=== PATIENT | male | born 1940 | race Caucasian/White ===

== ENCOUNTER → 2019-05-27 10:25 | Outpatient (CLI) | payer MEDICARE, OTHER, SELFPAY ==
[2019-05-27 10:21] VITALS: BMI 32.8
--- NOTE | 2019-05-27 10:27 | RAD_ITS ---
STUDY: X-RAY - LEFT KNEE REASON FOR EXAM: Anterior swelling after knee injury 12 years ago. TECHNIQUE: 4 view(s) of the knee. COMPARISON: None. FINDINGS: Normal visualized distal femur. Normal visualized proximal tibia and fibula. There are degenerative changes of the proximal tibiofibular articulation. There is moderate joint space narrowing of the medial femorotibial compartment. Normal lateral femorotibial compartment. There is mild joint space of the patellofemoral articulation. There is soft tissue swelling anterior to the patella. There is vascular calcification. RAD/Knee 4 or More Views IMPRESSION: Soft tissue swelling anterior to the patella, prepatellar bursitis and soft tissue mass are leading differential considerations. Arthrosis of the medial femorotibial and patellofemoral compartments, and proximal tibiofibular articulation. Electronically Signed: Mert Scanlon MD at 10:58 EDT Tel , Service support ,
[2019-05-27 13:03] LABS: Pathologist Comment May follow
[2019-05-27 13:31] LABS: RBC /Synovial Fluid 0.327 10^6/uL (0); Synovial Fld Mononuclear WBC % 71.4 %; Synovial Fld Polynuclear WBC % 28.6 %
[2019-05-27 14:04] LABS: AUTO B FLUID DILUENT BKGD CT WBC <0.1 RBC <0.01 (W<.1,R<.01); Source / Synovial Fluid L KNEE; Source- Body Fluid SYNOVIAL
[2019-05-27 14:05] LABS: Appearance /Synovial Fluid Cloudy (CLEAR); Color / Synovial Fluid Red (Pale Yellow)
[2019-05-27 14:40] LABS: Lymph 11 %; Monocyte /Synovial Fluid 50 %; Neutrophil 39 % (0-25)
[2019-05-28 12:49] LABS: Pathologist Review Reviewed
[2019-05-28 15:33] LABS: GLUCOSE, SYNOVIAL FLUID 42 mg/dL (.); PROTEIN, SYNOVIAL FLUID 5.1 g/dL (.)
== END ==
PROVIDERS: Family Provider Internal Medicine; PCP Internal Medicine; Referring Provider Orthopaedic Surgery; Visit Provider Orthopaedic Surgery
DX: M25.462 Effusion, left knee (principal); M70.42 Prepatellar bursitis, left knee
CPT/HCPCS: 73564; 82945; 84157; 87070; 87075; 87205; 89050; 89051; 89060

== ENCOUNTER → 2020-11-13 10:28 | Outpatient (CLI) | payer MEDICARE, OTHER, SELFPAY ==
[2020-11-06 14:24] VITALS: BMI 32.8
--- NOTE | 2020-11-13 10:30 | STEWCON_ITS ---
Reason For Study: LUCIANO Stress Results Protocol: Juan F Protocol WITH DEFINITY Maximum Predicted HR: 140 bpm Target HR: 119 bpm % Maximum Predicted HR: 84 % DurationHeart Rate Stage (mm:ss) (bpm) BP Comment BASELINE 55 150/824 CC TOTAL DEFINITY FOR TEST STAGE 1 3:00 95 158/80 STAGE 2 3:00 118 170/90SOB, NO CHEST PAIN RECOVERY 67 158/88 Stress Duration: 6:00 mm:ss Maximum Stress HR: 118 bpm Baseline Echocardiogram Findings Stress Echo Wall motion Data Resting WM Intermediate WM Stress WM Interpretation Summary Exercise stress echo. 80-year-old male with a history of hyperlipidemia and a family history. Stress protocol: Resting EKG demonstrates sinus bradycardia with a rate of 54 bpm normal intervals are noted resting blood pressure is 150/82 mmHg. The patient exercised according to the regular Juan F protocol for a total duration of 6 minutes and 40 seconds. Patient completed 40 seconds into stage III of the Juan F protocol. The patient maintained sinus rhythm throughout the recording. At rest there were no ST or T wave changes noted suggest ischemia peak exercise upsloping ST changes were noted we did not meet the criteria for ischemia. No clinical angina was noted the test was terminated due to dyspnea. The peak blood pressure was 174/96 mmHg. Blood pressure response to exercise was noted to be normal. Stress echocardiographic images. Resting and stress echocardiographic images were obtained with Definity enhancement. The resting ejection fraction was 55% with LVH noted. At peak exercise there was thickening of all cisneros and reduction of low ventricular cavity size with peaking of ejection fraction of 65%. No wall motion abnormalities were noted. Conclusion: Exercise stress echo with no EKG or echocardiographic criteria for ischemia at a moderate workload. No clinical angina noted. Good functional aerobic impairment.. Ordering Physician: Abhishek Peace Referring Physician: Abhishek Peace Performed By: Suzanne López, MISSY, RVT
== END ==
PROVIDERS: PCP Internal Medicine; Referring Provider Internal Medicine; Visit Provider Internal Medicine
DX: R06.00 Dyspnea, unspecified (principal)
CPT/HCPCS: 93017; 93350; Q9957; A4216; C8928

== ENCOUNTER 2021-04-25 09:30 | Outpatient (RCR) | payer MEDICARE, OTHER, SELFPAY ==
[2020-11-06 14:24] VITALS: BMI 32.8
--- NOTE | 2021-04-03 15:49 | HP.PTEVAL_ITS ---
Patient's Visit Information ANANYA MONTES is a 80 year old M referred to Physical Therapy by Dr. Abhishek Peace MD with a diagnosis of R hip pain. Date of Evaluation: 04/03/21 Physical Therapist: Adalberto Bradshaw, PT, ATC - Visit Plan Frequency: 1x/Week Duration: 2 Weeks Plan: Pt was issued and instructed in a HEP for R LE stretching. I will follow up in one week to assess the benefit of HEP - Subjective Pt reports he has had pain in the R glute region for 2 months. Pt notes he has limitations with walking his dog at times because the pain limits him. Pt reports the pain originates in the R glute region, but will radiate to the late ral and anterior thigh region when the pain gets bad. Pt denies groin pain at this time. 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 Pt denies tingling or numbness in R LE at this time. Pt describes his pain as feeling like he has sore muscles in R LE. Pt reports no sleep difficulty at this time. Pt reports he is able to relieve the pain if he lye's on his back for a little bit. 3/10 pain at rest, 9/10 while walking his dog in the morning. - Pain R hip Pain Intensity (Out of 10): 3 Pain Intensity Range: 9 - Objective Neuro: B LE sensation is WNL to light touch. B achilles reflex= 2/3. MMT: B LE's are 5/5 throughout. ROM: L/S and LE's are WFL. FLexibility: Pt is moderately limited with HS's and piriforis muscle in R LE - Goals Goal 1:: I with HEP in 1-2 weeks Goal Time Frame: 2 Weeks - Rehabilitation Potential Physical Therapy Diagnosis: Pt has R hip pain and is limited with ambulation secondary to piriformis syndrome Rehabilitation Potential: Good - Anticipated Interventions Patient/Client Instruction: Educate patient on: Condition, Plan of Care For the Purpose of:: To improve self management Therapeutic Exercise to Include: Flexibilty training For the Purpose of:: To decrease pain, To increase ROM Thank you for the opportunity to evaluate your patient. For Medicare and Medicare HMO plans, please review the plan of care and approve it. It will need to be FAXED BACK to us at [phone] for Medicare purposes. For Medicare only, by signing this I certify the plan of care. Please let me know if there are questions or concerns regarding this plan of care. Physician Signature: Date:
--- NOTE | 2021-08-15 13:35 | HP.PT.NRP ---
ANANYA MONTES was seen in my office for initial evaluation on 04/03/21. The following Plan of Care was established for this patient: Initial Frequency: 1x/Week Initial Duration: 2 Weeks Patient/Client Instruction: Educate patient on: Condition, Plan of Care For the Purpose of:: To improve self management Therapeutic Exercise to Include: Flexibilty training For the Purpose of:: To decrease pain, To increase ROM This patient was last seen in our office . Pertinent comments regarding their Physical therapy will appear below: Pt was treated for 3 PT visits for R hip pain through the date of 04/25/21. Pt has not returned through todays date and is discontinued at this time. At this point I will be discontinuing this patient from physical therapy. I would be happy to see this patient again in the future if found appropriate by the physician. Thank you! Adalberto Bradshaw, PT, ATC Balance/Gait/Functional tests - Balance/Special Test Scores Lower Extremity Functional Score: 34
== END 2021-04-25 19:00 | disposition home or self-care (01) ==
LOC: PT 09:30
PROVIDERS: PCP Internal Medicine; Referring Provider Internal Medicine; Visit Provider Internal Medicine
DX: M25.551 Pain in right hip (principal)
CPT/HCPCS: 97110; 97161

== ENCOUNTER → 2022-04-25 | Outpatient (CLI) | payer MEDICARE, SELFPAY ==
[2022-04-25 13:51] LABS: Anion Gap 4 (5-15); BUN 17 mg/dL (7-18); Calcium,Total 9.2 mg/dL (8.5-10.1); Chloride 107 mmol/L (98-107); Creatinine, Serum 0.85 mg/dL (0.70-1.30); EST Glomerular Filtration Rate 92 mL/min (>60); Est Glom Filt Rate - Afr Amer 111 mL/min (>60); Glucose 90 mg/dL (74-106); Potassium 4.1 mmol/L (3.5-5.1); Sodium Level 140 mmol/L (136-145)
== END | disposition home or self-care (01) ==
LOC: LAB 11:53
PROVIDERS: PCP Internal Medicine; Visit Provider Nurse Practitioner Gerontology
DX: I10 Essential (primary) hypertension (principal)
CPT/HCPCS: 36415; 80048

== ENCOUNTER 2023-11-25 08:30 | Outpatient (RCR) | payer MEDICARE, SELFPAY ==
--- NOTE | 2023-10-29 13:13 | HP.PTEVAL ---
Patient's Visit Information Visit Information Visit Information: ANANYA MONTES is a 83 year old M referred to Physical Therapy by Dr. Abhishek Peace MD with a diagnosis of LBP with R sciatica. Date of Evaluation: 10/29/23 Physical Therapist: Adalberto Bradshaw, PT, ATC Visit Plan Frequency: 2x /Week Duration: 3 Weeks Plan: Issue and instruct pt in HEP of SKTC/DKTC and core stab ex's Subjective Subjective: Pt reports he has had LBP for approximately 2 weeks. Pt reports his pain had an insidious onset in nature. Pt reports he has been using Voltaren to help ease with his pain, but the pain is severe and very limiting. Pt reports his pain is the worst when he has been walking a lot. Pt notes he has 2 dogs that he likes to take walking twice a day, but has been limited by the pain lately. Pt reports his pain will decrease some if he stops walking and sits down. Pt reports as long has he is sitting and not moving around, he has no pain. Pt denies sleep difficulty at this time. Pt reports no pain upon awakening in the morning, but the pain starts as soon as he starts walking. Pt has not had any recent diagnostic testing. Pt notes he has pain in the R glute area that extends to his R groin. Pt reports his pain is best relieved by standing upright and then bending forward reaching for his toes. Pain LBP/R hip: Pain Intensity (Out of 10): 0 Pain Intensity Range: 9 Objective Objective: Neuro: B LE sensation is WNL to light touch. B patellar reflex= 2/3 MMT: B LE's are grossly 5/5 throughout ROM: flexion and L SB are WNL. Extension is moderately limited, and R SB is minimally limited. Repeated movements: RFIS 10x2 better, FABI 10x2 increased central LBP Special tests: All neg hip tests this date. SKTC/DKTC all decreased pain Balance/Special Test Scores Oswestry Low Back Score: 17 Goals Goal 1:: I with HEP Goal Time Frame: 4-6 Weeks Rehabilitation Potential Physical Therapy Diagnosis: Pt has LBP, R LE radiculopathy, and difficulty with prolonged ambulation secondary to degenerative changes in the L/S Rehabilitation Potential: Good Anticipated Interventions Patient/Client Instruction: Educate patient on: Condition and Plan of Care For the Purpose of:: To improve self management Therapeutic Exercise to Include: Strength training, Postural training, Flexibilty training and Dynamic Lumbar Stabilization For the Purpose of:: To decrease pain, To increase ROM and To improve muscle performance and motor function Thermo therapy (hot pack): Yes For the Purpose of:: To decrease pain Text: Thank you for the opportunity to evaluate your patient. For Medicare and Medicare HMO plans, please review the plan of care and approve it. It will need to be FAXED BACK to us at [phone] for Medicare purposes. For Medicare only, by signing this I certify the plan of care. Please let me know if there are questions or concerns regarding this plan of care. Physician Signature: Date:
--- NOTE | 2024-01-26 12:02 | HP.PT.NRP ---
Patient Information Patient Information: ANANYA MONTES was seen in my office for initial evaluation on 10/29/23. The following Plan of Care was established for this patient: POC Established Initial Frequency: 2x /Week Initial Duration: 3 Weeks Anticipated Interventions Patient/Client Instruction: Educate patient on: Condition and Plan of Care For the Purpose of:: To improve self management Therapeutic Exercise to Include: Strength training, Postural training, Flexibilty training and Dynamic Lumbar Stabilization For the Purpose of:: To decrease pain, To increase ROM and To improve muscle performance and motor function Thermo therapy (hot pack): Yes For the Purpose of:: To decrease pain Last Seen Last Seen: This patient was last seen in our office . Pertinent comments regarding their Physical therapy will appear below: Pt was treated for 3 PT visits for low back pain through the date of 11/25/23. Pt has not returned through todays date and is discontinued at this time. At this point I will be discontinuing this patient from physical therapy. I would be happy to see this patient again in the future if found appropriate by the physician. Thank you! Adalberto Bradshaw, PT, ATC Balance/Gait/Functional tests Balance/Special Test Scores Oswestry Low Back Score: 17
== END 2023-11-25 19:00 | disposition home or self-care (01) ==
LOC: PT 08:30
PROVIDERS: PCP Internal Medicine; Referring Provider Internal Medicine; Visit Provider Internal Medicine
DX: M54.41 Lumbago with sciatica, right side (principal); I71.40 Abdominal aortic aneurysm, without rupture, unspecified
CPT/HCPCS: 97110; 97161